=== PATIENT | female | born 1995 | race Native Hawaiian/Other Pacific Islander ===

== ENCOUNTER 2018-01-01 12:28 | Emergency (ER) | payer MEDICAID, OTHER ==
[2018-01-01 13:45] LABS: HCG,QUALITATIVE URINE NEGATIVE (NEGATIVE)
[2018-01-01 13:53] LABS: SQUAMOUS EPITHIAL 2 /hpf (0-5); URINE BACTERIA FEW (<OCC); URINE BILIRUBIN NEGATIVE (NEGATIVE); URINE BLOOD 1+ (NEGATIVE); URINE CLARITY Clear (Clear); URINE COLOR Straw (YELLOW); URINE GLUCOSE (UA) NORMAL (Normal); URINE LEUKOCYTE ESTERASE 1+ Leu/uL (Negative); URINE PROTEIN NEGATIVE (NEGATIVE); URINE UROBILINOGEN NORMAL mg/dL (0.2-1.0)
[2018-01-01 13:59] LABS: BASO # 0.1 K/uL (0.0-0.2); BASO % 1.1 % (0.0-2.0); EOS # 0.2 K/uL (0.0-0.7); EOS % 1.9 % (0.0-4.0); HEMOGLOBIN 14.3 g/dL (11.0-16.0); LYMPH # 1.8 K/uL (1.0-4.3); LYMPH % 17.4 % (20.0-40.0); MEAN CELL VOLUME 85.5 fL (81.0-99.0); MEAN CORPUSCULAR HEMOGLOBIN 29.3 pg (27.0-31.0); MEAN CORPUSCULAR HGB CONC 34.3 g/dL (33.0-37.0); MONO # 0.6 K/uL (0.0-0.8); NEUT # 7.7 K/uL (1.8-7.0); NEUT % 73.6 % (50.0-75.0); NRBC % 0.1 % (0.0-2.0); RBC 4.87 Mil/uL (3.80-5.20); RED CELL DISTRIBUTION WIDTH 13.3 % (11.5-14.5); WHITE BLOOD COUNT 10.5 K/uL (4.8-10.8)
--- NOTE | 2018-01-01 14:00 | C.PDOC ---
History Of Present Illness 22 y/o female presents to the ER complaining of right sided headache and left lower chest/ LUQ pain which began around 11 am today. Patient states that she has a history of "palpitations" and she is taking Propanolol from the [facility]. Denies having fever, SOB, palpitations, nausea, vomiting, diarrhea , and recent air travel. 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 for the past 2 years. Time Seen by Provider: 01/01/18 12:55 Chief Complaint (Nursing): Headache History Per: Patient History/Exam Limitations: no limitations Onset/Duration Of Symptoms: Hrs Current Symptoms Are (Timing): Still Present Severity: Moderate Past Medical History Reviewed: Historical Data, Nursing Documentation, Vital Signs Vital Signs: Last Vital Signs Temp 98.7 F 01/01/18 15:41 Pulse 85 01/01/18 15:41 Resp 14 01/01/18 15:41 BP 101/69 01/01/18 15:41 Pulse Ox 100 01/01/18 18:05 - Medical History PMH: No Chronic Diseases Surgical History: No Surg Hx Family History: States: No Known Family Hx - Social History Hx Alcohol Use: No Hx Substance Use: No - Immunization History Hx Tetanus Toxoid Vaccination: No Hx Influenza Vaccination: No Hx Pneumococcal Vaccination: No Review Of Systems Except As Marked, All Systems Reviewed And Found Negative. Constitutional: Negative for: Fever, Chills Cardiovascular: Positive for: Chest Pain. Negative for: Palpitations Respiratory: Negative for: Cough, Shortness of Breath Gastrointestinal: Positive for: Abdominal Pain. Negative for: Nausea, Vomiting , Diarrhea Neurological: Positive for: Headache Physical Exam - Physical Exam Appears: Non-toxic, No Acute Distress, Other (comfortable) Skin: Normal Color, Warm, Dry Head: Atraumatic, Normacephalic Eye(s): bilateral: Normal Inspection Nose: Normal Oral Mucosa: Moist Neck: Supple Chest: Symmetrical Cardiovascular: Rhythm Regular Respiratory: Normal Breath Sounds, No Rales, No Rhonchi, No Wheezing Gastrointestinal/Abdominal: Normal Exam, Soft, No Tenderness Extremity: Normal ROM, Other ((-) leg edema) Neurological/Psych: Oriented x3, Normal Speech ED Course And Treatment - Laboratory Results Result Diagrams: 01/01/18 13:56 01/01/18 13:56 ECG: Interpreted By Me, Viewed By Me ECG Rhythm: Sinus Rhythm O2 Sat by Pulse Oximetry: 100 (RA) Pulse Ox Interpretation: Normal - Radiology CXR: Interpreted by Me, Viewed By Me CXR Interpretation: Yes: No Acute Disease Progress Note: Labs, UA, and CXR ordered. Patient treated with Tylenol PO. Labs show low TSH level, 0.31.Patient has been discharged and instructed to follow up in clinic in 1-2 days and desktop support technician within 1 week if symptoms worsen. Disposition Counseled Patient/Family Regarding: Studies Performed, Diagnosis, Need For Followup - Disposition Referrals: [facility] at [facility] [Outside] Carlito Fuentes MD [Staff Provider] - Disposition: HOME/ ROUTINE Disposition Time: 15:25 Condition: STABLE Additional Instructions: FOLLOW UP IN THE MEDICAL CLINIC IN 1-2 DAYS, AND WITH CARDIOLOGY WITHIN 1 WEEK IF SYMPTOMS PERSIST RETURN TO ER IF SYMPTOMS WORSEN Instructions: Chest Pain (DC) Forms: [facility] (Portuguese), School Excuse Print Language: CZECH - Clinical Impression Clinical Impression: Low TSH level, Chest pain - Scribe Statement The provider has reviewed the documentation as recorded by the Marcus Robb Provider Attestation: All medical record entries made by the Joyaibe were at my direction and personally dictated by me. I have reviewed the chart and agree that the record accurately reflects my personal performance of the history, physical exam, medical decision making, and the department course for this patient. I have also personally directed, reviewed, and agree with the discharge instructions and disposition.
--- NOTE | 2018-01-01 14:10 | RAD ---
PROCEDURE: CHEST RADIOGRAPH, 1 VIEW HISTORY: Chest pain COMPARISON: None available. FINDINGS: LUNGS: The lungs are well inflated and clear. PLEURA: No pneumothorax or pleural fluid seen. CARDIOVASCULAR: Normal. OSSEOUS STRUCTURES: No significant abnormalities. VISUALIZED UPPER ABDOMEN: Normal. OTHER FINDINGS: None. IMPRESSION: No active pulmonary disease.
[2018-01-01 14:20] LABS: ALB/GLOB RATIO 1.2 (1.0-2.1); ALBUMIN 4.9 g/dL (3.5-5.0); ALT/SGPT 12 U/L (9-52); AST/SGOT 25 U/L (14-36); BLOOD UREA NITROGEN 12 mg/dL (7-17); CALCIUM 9.3 mg/dl (8.6-10.4); GFR AFRICAN-AMERICAN > 60; GFR NON-AFRICAN AMERICAN > 60
[2018-01-01 14:33] LABS: CK-MB < 0.22 ng/mL (0.0-3.38)
[2018-01-01 15:42] VITALS: BP 101/69; PULSE 85; RESP 14; TEMP 98.7
[2018-01-01 17:59] VITALS: O2SAT 100
== END 2018-01-01 15:46 | disposition home or self-care (01) ==
LOC: C.ER 12:28
DX: R07.9 Chest pain, unspecified (principal)

== ENCOUNTER 2018-01-03 10:07 | Emergency (ER) | payer OTHER ==
[2018-01-03 10:12] VITALS: RESP 16; O2SAT 98
[2018-01-03] MEDS ORDERED: Aluminum Hydroxide/Magnesium Hydroxide Susp (30 mL) PO STA (11:03)
[2018-01-03] MEDS ORDERED: Sodium Chloride 0.9% 1,000 ML IV ONE (11:03)
[2018-01-03] MEDS ORDERED: Belladonna-Phenobarbital PO STA (11:07)
--- NOTE | 2018-01-03 11:16 | C.PDOC ---
History Of Present Illness 22 year old female presents to the emergency department with a complaint of an abdominal pain located to the left upper region that starts after she eats described as a pulling sensation. Associated with a left-sided headache that sometimes turns into left-sided head numbness after she eats as well. Patient states it started about 3 days ago prompting her to take Nexium because he thinks it is acid reflux although pain is still there. Denies radiation of pain , fever, or chills. Time Seen by Provider: 01/03/18 10:40 Chief Complaint (Nursing): Abdominal Pain History Per: Patient History/Exam Limitations: no limitations Onset/Duration Of Symptoms: Days Current Symptoms Are (Timing): Still Present Past Medical History Reviewed: Historical Data, Nursing Documentation Vital Signs: Last Vital Signs Temp 98.6 F 01/03/18 12:34 Pulse 70 01/03/18 12:34 Resp 16 01/03/18 12:34 BP 95/60 L 01/03/18 12:34 Pulse Ox 98 01/03/18 12:56 - Medical History PMH: Migraine Other PMH: Tachcardia and mitral valve regur Surgical History: No Surg Hx Family History: States: Unknown Family Hx - Social History Hx Alcohol Use: No Hx Substance Use: No - Immunization History Hx Tetanus Toxoid Vaccination: No Hx Influenza Vaccination: No Hx Pneumococcal Vaccination: No Review Of Systems Except As Marked, All Systems Reviewed And Found Negative. (As per HPI, otherwise negative) Constitutional: Negative for: Fever, Chills Gastrointestinal: Positive for: Abdominal Pain Neurological: Positive for: Numbness ( numbness to the left-sided of the head), Headache (after she eats) Physical Exam - Physical Exam Appears: Well, Non-toxic, No Acute Distress Skin: Normal Color, Warm, Dry Head: Atraumatic, Normacephalic, No Tenderness Cardiovascular: Rhythm Regular, No Murmur Respiratory: Normal Breath Sounds, No Decreased Breath Sounds, No Accessory Muscle Use, No Wheezing Gastrointestinal/Abdominal: No Normal Exam, Soft, Tenderness (Grossly nontender with mild point tendnerss to the LUQ. ) Back: Normal Inspection, No CVA Tenderness Extremity: Normal ROM, No Pedal Edema Neurological/Psych: Oriented x3, Normal Speech Gait: Steady ED Course And Treatment O2 Sat by Pulse Oximetry: 98 (RA) Pulse Ox Interpretation: Normal Medical Decision Making Medical Decision Making: Time: 1100 Maalox 30 ml 1 tab PO Protonix inj 40 mg IVP Sodium Chloride 0.9% 1L IV Time: 1253 --Patient is feeling better and medically clear for discharge. Given an Rx for Maalox 30 ml and Protonix 40 mg. Advised to follow up with referred clinic. Clinical Impression: Acid Reflux in Adult. Disposition Counseled Patient/Family Regarding: Studies Performed, Diagnosis, Need For Followup, Rx Given - Disposition Referrals: [facility] at [facility] [Outside] Disposition: HOME/ ROUTINE Disposition Time: 12:53 Condition: STABLE Additional Instructions: Follow up with your doctor in the [facility], or in our clinic. Take the medications as indicated. Eat small but frequent meals. Prescriptions: Aluminum Hydroxide/Magnesium H [Maalox 30 ml] 30 ml PO TID #1 bottle Pantoprazole Sodium [Protonix] 40 mg PO HS #15 ect Instructions: Acid Reflux (Gastroesophageal Reflux Disease), Adult (DC) Forms: General Discharge Instructions, [facility] (Danish), School Excuse - POA Present On Arrival: None - Clinical Impression Clinical Impression: Epigastric pain - Scribe Statement ~ Scribe~Attestation: Documented by Loan Mello, acting as a~scribe~for Kelly Felton MD. ~ Provider~Scribe~Attestation: All medical record entries made by the~Marcus~were at my direction and personally dictated by me. I have reviewed the chart and agree that the record accurately reflects my personal performance of the history, physical exam, medical decision making, and the department course for this patient. I have also personally directed, reviewed, and agree with the discharge instructions and disposition.
[2018-01-03] MEDS ORDERED: Aluminum Hydroxide/Magnesium Hydroxide Susp (30 mL) ONE (11:41)
[2018-01-03] MEDS ORDERED: Sodium Chloride 0.9% 1,000 ML ONE (11:41)
[2018-01-03] MEDS ORDERED: Belladonna-Phenobarbital ONE (11:41)
[2018-01-03 12:34] VITALS: BP 95/60; PULSE 70; TEMP 98.6
== END 2018-01-03 13:18 | disposition home or self-care (01) ==
LOC: C.ER 10:07
DX: K21.9 Gastro-esophageal reflux disease without esophagitis (principal); R10.12 Left upper quadrant pain
CPT/HCPCS: 96361; 96374; 99284; C9113; J7040

== ENCOUNTER 2018-01-10 18:41 | Emergency (ER) | payer SELFPAY ==
[2018-01-10 18:58] VITALS: BMI 20.9
--- NOTE | 2018-01-10 19:42 | C.PDOC ---
History Of Present Illness Patient presents with right sided headache for about a week, Has seen her pmd and took naproxen without relief. No n/v/. no visual changed . Dull throbbing headache. No photophobia Time Seen by Provider: 01/10/18 19:41 Chief Complaint (Nursing): Headache History Per: Patient History/Exam Limitations: no limitations Onset/Duration Of Symptoms: Days (7) Current Symptoms Are (Timing): Still Present Severity: Moderate Pain Scale Rating Of: 4 Quality: Dull, Tightness, Squeezing Preceeding Symptoms: None Associated Symptoms: denies: Photophobia, Blurred Vision, Nausea Recent travel outside of the [place]: No Additional History Per: Family Past Medical History Reviewed: Historical Data, Nursing Documentation, Vital Signs Vital Signs: Last Vital Signs Temp 98.8 F 01/10/18 18:57 Pulse 71 01/10/18 21:27 Resp 18 01/10/18 21:27 BP 100/65 01/10/18 21:27 Pulse Ox 99 01/10/18 21:27 - Medical History PMH: Migraine Family History: States: No Known Family Hx - Social History Hx Alcohol Use: No Hx Substance Use: No - Immunization History Hx Tetanus Toxoid Vaccination: No Hx Influenza Vaccination: No Hx Pneumococcal Vaccination: No Review Of Systems Constitutional: Negative for: Fever, Chills Eyes: Negative for: Vision Change ENT: Negative for: Throat Pain Cardiovascular: Negative for: Chest Pain Respiratory: Negative for: Shortness of Breath Gastrointestinal: Negative for: Nausea, Vomiting, Abdominal Pain Genitourinary: Negative for: Dysuria Musculoskeletal: Negative for: Back Pain Skin: Negative for: Rash Neurological: Positive for: Headache. Negative for: Weakness Psych: Negative for: Anxiety Physical Exam - Physical Exam Appears: Non-toxic, No Acute Distress Skin: Warm, Dry Head: Normacephalic Eye(s): bilateral: Normal Inspection, PERRL, EOMI Ear(s): Bilateral: Normal Nose: Normal Oral Mucosa: Moist Tongue: Normal Appearing Lips: Normal Appearing Teeth: Normal Dentition Throat: No Erythema Neck: Trachea Midline, No Midline Cervical Tenderness, Supple Chest: Symmetrical Cardiovascular: Rhythm Regular Respiratory: No Rales, No Rhonchi, No Wheezing Back: Normal Inspection Extremity: Normal ROM Extremity: Bilateral: Atraumatic Pulses: Left Dorsalis Pedis: Normal, Right Dorsalis Pedis: Normal Neurological/Psych: Oriented x3 Gait: Steady ED Course And Treatment O2 Sat by Pulse Oximetry: 99 Pulse Ox Interpretation: Normal Reevaluation Time: 22:22 Reassessment Condition: Improved Disposition Counseled Patient/Family Regarding: Studies Performed, Diagnosis, Need For Followup, Rx Given - Disposition Referrals: Collins Shafer MD [Staff Provider] - Disposition: HOME/ ROUTINE Disposition Time: 19:42 Condition: FAIR Additional Instructions: Please follow up with your doctor Prescriptions: Ondansetron ODT [Zofran ODT] 1 odt PO BID PRN #6 odt PRN Reason: Nausea/Vomiting Instructions: Headache, Adult (DC) Forms: [employer] (Bolivian) - Clinical Impression Clinical Impression: Headache
[2018-01-10] MEDS ORDERED: Lactated Ringer's 1,000 ML IV ONE (19:56)
[2018-01-10] MEDS ORDERED: Lactated Ringer's 1,000 ML ONE (20:09)
[2018-01-10 20:13] LABS: HCG,QUALITATIVE URINE NEGATIVE (NEGATIVE); SQUAMOUS EPITHIAL 1 /hpf (0-5); URINE BACTERIA RARE (<OCC); URINE BILIRUBIN NEGATIVE (NEGATIVE); URINE CLARITY Clear (Clear); URINE COLOR Colorless (YELLOW); URINE GLUCOSE (UA) NORMAL (Normal); URINE LEUKOCYTE ESTERASE NEG Leu/uL (Negative); URINE PROTEIN NEGATIVE (NEGATIVE); URINE UROBILINOGEN NORMAL mg/dL (0.2-1.0)
[2018-01-10 20:19] LABS: URINE BLOOD TRACE (NEGATIVE)
[2018-01-10 22:33] VITALS: BP 93/57; PULSE 80; RESP 20; TEMP 97.9; O2SAT 100
--- NOTE | 2018-01-13 09:31 | CT ---
PROCEDURE: CT HEAD WITHOUT CONTRAST. HISTORY: Headache COMPARISON: None available. TECHNIQUE: Axial computed tomography images were obtained through the head/brain without intravenous contrast. Radiation dose: Total exam DLP = 759 mGy-cm. This CT exam was performed using one or more of the following dose reduction techniques: Automated exposure control, adjustment of the mA and/or kV according to patient size, and/or use of iterative reconstruction technique. FINDINGS: HEMORRHAGE: No intracranial hemorrhage. BRAIN: No mass effect or edema. No atrophy or chronic microvascular ischemic changes. VENTRICLES: Unremarkable. No hydrocephalus. CALVARIUM: Unremarkable. PARANASAL SINUSES: Unremarkable as visualized. No significant inflammatory changes. MASTOID AIR CELLS: Unremarkable as visualized. No inflammatory changes. OTHER FINDINGS: None. IMPRESSION: No acute intracranial abnormality. If headache persists, consider correlation with MRI. These findings were preliminarily reported at 9:40 p.m. on 01/10/[address] Brien Niño from [facility].
== END 2018-01-10 22:33 | disposition home or self-care (01) ==
LOC: C.ER 18:41
DX: R51 Headache (principal)
CPT/HCPCS: 70450; 81001; 84703; 96374; 96375; 99285; J1885; J2405; J7120

== ENCOUNTER 2018-09-30 17:47 | Emergency (ER) | payer OTHER ==
[2018-09-30 17:47] VITALS: BMI 20.9
[2018-09-30 17:57] VITALS: TEMP 97.5
--- NOTE | 2018-09-30 19:54 | C.PDOC ---
History Of Present Illness The patient is a 23 year old female with history of problems to the muscles in the back of her neck. Patient presents to the ED today for evaluation of right- sided neck pain that radiates to the back of her head. She denies fever, chills, vision change, nausea, vomiting, or extremity numbness/weakness at this time. Time Seen by Provider: 09/30/18 18:49 Chief Complaint (Nursing): Headache History Per: Patient History/Exam Limitations: no limitations Onset/Duration Of Symptoms: Days Current Symptoms Are (Timing): Still Present Quality: Aching, "Pain" Associated Symptoms: denies: Photophobia, Blurred Vision, Nausea, Vomiting, Extremity Weakness Additional History Per: Patient Past Medical History Reviewed: Historical Data, Nursing Documentation, Vital Signs Vital Signs: Last Vital Signs Temp 97.5 F L 09/30/18 17:54 Pulse 110 H 09/30/18 17:54 Resp 18 09/30/18 17:54 BP 149/91 H 09/30/18 17:54 Pulse Ox 100 09/30/18 17:54 - Medical History PMH: Migraine Surgical History: No Surg Hx Family History: States: Unknown Family Hx - Social History Hx Alcohol Use: No Hx Substance Use: No - Immunization History Hx Tetanus Toxoid Vaccination: No Hx Influenza Vaccination: No Hx Pneumococcal Vaccination: No Review Of Systems Constitutional: Negative for: Fever, Chills Eyes: Negative for: Vision Change Gastrointestinal: Negative for: Nausea, Vomiting Musculoskeletal: Positive for: Neck Pain (right-sided ) Neurological: Negative for: Weakness, Numbness Physical Exam - Physical Exam Appears: Non-toxic, No Acute Distress Skin: Normal Color, Warm, Dry Head: Atraumatic, Normacephalic Eye(s): bilateral: Normal Inspection Oral Mucosa: Moist Neck: No Midline Cervical Tenderness, Paracervical Tenderness (right-sided ), Other (right-sided trapezius tenderness ) Chest: Symmetrical, No Deformity, No Tenderness Cardiovascular: Rhythm Regular, No Murmur Respiratory: Normal Breath Sounds, No Rales, No Rhonchi, No Wheezing Gastrointestinal/Abdominal: Soft, No Tenderness, No Guarding, No Rebound Back: No Vertebral Tenderness, No Paraspinal Tenderness Extremity: Normal ROM, Capillary Refill (less than 2 seconds ) Neurological/Psych: Normal Speech, Normal Cognition, Normal Motor, Normal Sensation Gait: Steady ED Course And Treatment O2 Sat by Pulse Oximetry: 100 (on RA) Pulse Ox Interpretation: Normal Medical Decision Making Medical Decision Making: Progress: Tylenol PO and Flexeril PO given. On reassessment, patient is resting comfortably, showing no signs of distress and reports an improvement in her pain. Patient is ambulatory in the ED with a steady gait. She is advised to follow up with her PMD within 1-2 days for further evaluation. Disposition Counseled Patient/Family Regarding: Diagnosis, Need For Followup, Rx Given - Disposition Referrals: [facility] at [facility] [Outside] Disposition: HOME/ ROUTINE Disposition Time: 20:46 Condition: GOOD Additional Instructions: Continue taking Aleve, with food; Can take Tylenol 650 mg by mouth every 6 hours; take muscle relaxant at bedtime. Follow up in medical clinic. Call for appointment. Warm compresses to painful area several times a day. 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 - Scribe Statement The provider has reviewed the documentation as recorded by the Scribe (Kerry Aquino) All medical record entries made by the Scribe were at my direction and personally dictated by me. I have reviewed the chart and agree that the record accurately reflects my personal performance of the history, physical exam, medical decision making, and the department course for this patient. I have also personally directed, reviewed, and agree with the discharge instructions and disposition.
[2018-09-30 20:47] VITALS: BP 135/90; PULSE 81; RESP 16
[2018-09-30 20:48] VITALS: O2SAT 100
== END 2018-09-30 20:52 | disposition home or self-care (01) ==
LOC: C.ER 17:47
DX: M62.838 Other muscle spasm (principal)

== ENCOUNTER 2018-12-06 15:33 | Emergency (ER) | payer OTHER ==
[2018-12-06 15:33] VITALS: BMI 20.9
[2018-12-06 15:50] VITALS: RESP 18
--- NOTE | 2018-12-06 16:04 | C.PDOC ---
History Of Present Illness 23 y/o female pt presents to the ER c/o intermittent upper neck pain x1 day. Associated sx includes right ear pressure. Pt notes she had similar pain x2 weeks ago and went to her PMD and was told she does not have an ear infection but gave her amoxicillin for her "mastoid process". LMP 11/16/18. Pt denies congestion, dizziness, headache and fever. Time Seen by Provider: 12/06/18 15:47 Chief Complaint (Nursing): ENT Problem History Per: Patient History/Exam Limitations: None Onset/Duration Of Symptoms: Days (x1) Current Symptoms Are (Timing): Still Present Past Medical History Reviewed: Historical Data, Nursing Documentation, Vital Signs Vital Signs: Last Vital Signs Temp 98.1 F 12/06/18 15:47 Pulse 96 H 12/06/18 15:47 Resp 18 12/06/18 15:47 BP 121/80 12/06/18 15:47 Pulse Ox 99 12/06/18 15:47 - Medical History PMH: Migraine Family History: States: Unknown Family Hx - Social History Hx Alcohol Use: No Hx Substance Use: No - Immunization History Hx Tetanus Toxoid Vaccination: No Hx Influenza Vaccination: No Hx Pneumococcal Vaccination: No Review Of Systems Except As Marked, All Systems Reviewed And Found Negative. Constitutional: Negative for: Fever, Other (congestion ) ENT: Positive for: Other (right ear pressure ) Musculoskeletal: Positive for: Neck Pain (upper ) Neurological: Negative for: Headache, Dizziness Physical Exam - Physical Exam Appears: Non-toxic, No Acute Distress Skin: Warm, Dry Head: Atraumatic, Normacephalic Ear(s): Right: Normal (effusion ), Other (no erythema ) Oral Mucosa: Moist Throat: Normal, No Erythema Neck: Normal ROM, Supple Neurological/Psych: Oriented x3, Normal Speech ED Course And Treatment O2 Sat by Pulse Oximetry: 99 (RA) Pulse Ox Interpretation: Normal - CT Scan/US mastoid Other Rad Studies (CT/US): Read By Radiologist, Radiology Report Reviewed CT/US Interpretation: Name:RHONDA ESPITIA Exam Date:Dec 06, 2018 5:28:37 PM EDT. Modality Type:CT. Description:CT - MASTOID. Gender:F Laterality:Not applicable. :97 Referring Physician:Sarah Thompson). EXAM: CT Head without Intravenous Contrast. CLINICAL HISTORY: Right sided LUNDBERG and behind the R ear pain. TECHNIQUE: Axial computed tomography images of the temporal bones and mastoid air cells is performed. 0.00 mGy-cm. CONTRAST: Without contrast. COMPARISON: None provided. FINDINGS: The mastoid air cells appear symmetric and well aerated and show no significant abnormality. Middle ear cavities appear well aerated. Internal auditory canals also appear symmetric. There is no bone erosion or bone destruction. There is no soft tissue mass identified. Impression: No significant abnormality involving the mastoid air cells. Clinical correlation advised. . Electronically signed on Dec 06, 2018 6:25:49 PM EDT by: Joshua Huertas M.D., Certified by [facility], Diagnostic Radiology. head Other Rad Studies (CT/US): Read By Radiologist, Radiology Report Reviewed CT/US Interpretation: Name:RHONDA ESPITIA Exam Date:Dec 06, 2018 5:23:18 PM EDT. Modality Type:CT. Description:CT - BRAIN. Gender:F Laterality:Not applicable. :97 Referring Physician:Sarah Thompson). EXAM: CT Head Without IV contrast. CLINICAL HISTORY: Right sided headaches. TECHNIQUE: Axial computed tomography images of the head/brain without intravenous contrast. COMPARISON: None provided. FINDINGS: BRAIN: No acute intraparenchymal hemorrhage. No mass lesion. No CT evidence for acute territorial infarct. No midline shift or extra-axial collections. VENTRICLES: No hydrocephalus. ORBITS: The orbits are unremarkable. SINUSES AND MASTOIDS: The paranasal sinuses and mastoid air cells are clear. BONES: No fracture. SOFT TISSUES: Unremarkable. IMPRESSION: No acute intracranial abnormality. . Electronically signed on Dec 06, 2018 6:48:25 PM EDT by: Joshua Huertas M.D., Certified by [facility], Diagnostic Radiology. Progress Note: Plans: -- POC urine. Urine test: negative. -- CT head. -- CT facial bones. Follow up with ENT and neurologist within 2-3 days. Return to ED if feel worse. Disposition - Disposition Referrals: Tremaine Dumas MD [Staff Provider] - Collins Shafer MD [Staff Provider] - Disposition: HOME/ ROUTINE Disposition Time: 19:56 Condition: STABLE Additional Instructions: Follow up with ENT and Neurologist within 2-3 days. Return to ED if feel worse. 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 - Scribe Statement The provider has reviewed the documentation as recorded by the Marcus Gutierres Do All medical record entries made by the Joyaibmary were at my direction and personally dictated by me. I have reviewed the chart and agree that the record accurately reflects my personal performance of the history, physical exam, medical decision making, and the department course for this patient. I have also personally directed, reviewed, and agree with the discharge instructions and disposition.
[2018-12-06 20:03] VITALS: BP 117/68; PULSE 86; TEMP 98.2
--- NOTE | 2018-12-07 08:46 | CT ---
Date of service: 12/06/2018 PROCEDURE: CT HEAD WITHOUT CONTRAST. HISTORY: right sided LUNDBERG and behind the ear pain COMPARISON: 01/10/2018 TECHNIQUE: Axial computed tomography images were obtained through the head/brain without intravenous contrast. Radiation dose: Total exam DLP = 1006.97 mGy-cm. This CT exam was performed using one or more of the following dose reduction techniques: Automated exposure control, adjustment of the mA and/or kV according to patient size, and/or use of iterative reconstruction technique. FINDINGS: HEMORRHAGE: No intracranial hemorrhage. BRAIN: No mass effect or edema. No atrophy or chronic microvascular ischemic changes. VENTRICLES: Unremarkable. No hydrocephalus. CALVARIUM: Unremarkable. PARANASAL SINUSES: Unremarkable as visualized. No significant inflammatory changes. MASTOID AIR CELLS: Unremarkable as visualized. No inflammatory changes. OTHER FINDINGS: None. IMPRESSION: Normal CT of the Head. No intracranial mass, hemorrhage or evidence of acute infarct. The preliminary findings for this examination were reported by [facility] at 6:48 p.m. on 12/06/2018. There is concurrence of this report with the preliminary findings.
--- NOTE | 2018-12-07 08:51 | CT ---
Date of service: 12/06/2018 PROCEDURE: CT OF THE TEMPORAL BONES WITHOUT CONTRAST HISTORY: right sided LUNDBERG and behind the ear pain COMPARISON: None available. TECHNIQUE: High resolution axial images of the temporal bones were obtained. Coronal and sagittal reformats were generated. Radiation dose: Total exam DLP = 606.07 mGy-cm. This CT exam was performed using one or more of the following dose reduction techniques: Automated exposure control, adjustment of the mA and/or kV according to patient size, and/or use of iterative reconstruction technique. FINDINGS: RIGHT TEMPORAL BONE: RIGHT MIDDLE EAR: Normal. RIGHT INNER EAR: Cochlea: Normal. Semicircular canals: Normal. RIGHT MASTOID AIR CELLS: No abnormal density or bony erosion. RIGHT INTERNAL AUDITORY CANAL: Normal. RIGHT EXTERNAL AUDITORY CANAL: Normal. RIGHT VESTIBULAR AND COCHLEAR AQUEDUCT: Normal. OTHER FINDINGS: None. LEFT TEMPORAL BONE: LEFT MIDDLE EAR: Normal. LEFT INNER EAR: Cochlea: Normal. Semicircular canals: Normal. LEFT MASTOID AIR CELLS: Normal. LEFT INTERNAL AUDITORY CANAL: Normal. LEFT EXTERNAL AUDITORY CANAL: Normal. LEFT VESTIBULAR AND COCHLEAR AQUEDUCTS: Normal. OTHER FINDINGS: None. IMPRESSION: No evidence of mastoiditis. No evidence of otitis media. No evidence of otitis externa. Unremarkable examination. The preliminary findings for this examination were reported by [facility] at 6:25 p.m. on 12/06/2018. There is concurrence of this report with the preliminary findings.
[2018-12-07 10:27] VITALS: O2SAT 99
== END 2018-12-06 20:04 | disposition home or self-care (01) ==
LOC: C.ER 15:33
DX: R51 Headache (principal); H92.01 Otalgia, right ear